=== PATIENT | female | born 1970 | race Asian ===

== ENCOUNTER 2016-10-02 06:01 | Day surgery (SDC) | payer OTHER ==
[2016-09-24 14:27] VITALS: BMI 25.0
[2016-10-02] MEDS ORDERED: GENTAMICIN SO4 80 MG/2 ML VIAL ONE (07:29)
[2016-10-02] MEDS ORDERED: POLYMYXIN B SULFATE 500,000 UNIT VIAL ONE (07:30)
[2016-10-02] MEDS ORDERED: EPINEPHrine 1:1,000 1 MG/1 ML - 30ML VIAL (INJECTION) ONE (07:31)
[2016-10-02] MEDS ORDERED: LIDOCAINE HCL 1%, 10 MG/ML (20ML VIAL) ONE (07:31)
[2016-10-02] MEDS ORDERED: MIDAZOLAM HCL 2 MG/2 ML SINGLE DOSE VIAL ONE (07:50)
[2016-10-02] MEDS ORDERED: SCOPOLAMINE HYDROBROMIDE 1 PATCH PATCH.TD72 ONE (07:50)
[2016-10-02] MEDS ORDERED: GUM MASTIC/STORAX/MSAL/ALCOHOL 1 DRP DROPSBTL MC ONE (07:53)
[2016-10-02] MEDS ORDERED: LIDOCAINE 1%-EPI 1:100,000 30 ML MDV IJ ONE ×2 (07:53→08:28)
[2016-10-02] MEDS ORDERED: PROPOFOL 20 ML ONE ×2 (08:03)
[2016-10-02] MEDS ORDERED: SUCCINYLCHOLINE CHLORIDE 200 MG/10 ML VIAL ONE (08:04)
[2016-10-02] MEDS ORDERED: ROCURONIUM BROMIDE 50 MG/5 ML VIAL ONE ×2 (08:04→09:10)
[2016-10-02] MEDS ORDERED: ceFAZolin SODIUM 1 GM VIAL ONE (08:16)
[2016-10-02] MEDS ORDERED: HYDROmorphone HCL/PF 1 MG/ML VIAL (FOR PYXIS CHARGING ONLY) ONE ×2 (08:18→08:29)
[2016-10-02] MEDS ORDERED: DEXAMETHASONE SOD PHOSPHATE 4 MG/1 ML VIAL ONE ×2 (08:19→09:57)
[2016-10-02] MEDS ORDERED: ONDANSETRON 4 MG/2 ML VIAL ONE ×2 (08:19→09:57)
[2016-10-02] MEDS ORDERED: BUPIVACAINE HCL/PF 2.5 MG/ML - 30 ML VIAL IJ ONE (09:36)
[2016-10-02] MEDS ORDERED: ONDANSETRON 4 MG/2 ML VIAL IVPUSH PRN (10:56)
[2016-10-02] MEDS ORDERED: oxyCODONE HCL 5 MG TABLET PO PRN (10:56)
[2016-10-02] MEDS ORDERED: PROMETHAZINE HCL 25 MG/1 ML VIAL IVPUSH PRN (10:56)
[2016-10-02] MEDS ORDERED: LACTATED RINGERS SOLUTION 1,000 ML IV SCH ×2 (11:00→14:15)
[2016-10-02] MEDS ORDERED: oxyCODONE HCL 5 MG TABLET ONE (12:37)
[2016-10-02] MEDS ORDERED: ONDANSETRON 4 MG/2 ML VIAL IVPB PRN (14:03)
[2016-10-02] MEDS ORDERED: OXYCODONE/APAP 5/325MG COMBO TABLET PO PRN (14:03)
[2016-10-02] MEDS ORDERED: diazePAM 5 MG TABLET PO PRN (14:03)
[2016-10-02] MEDS ORDERED: ACETAMINOPHEN 325 MG TABLET (FP) PO PRN (14:03)
[2016-10-02] MEDS ORDERED: OXYCODONE/APAP 5/325MG COMBO TABLET ONE (16:11)
[2016-10-02] MEDS ORDERED: OXYCODONE/APAP 5/325MG COMBO TABLET PO ONE (16:15)
[2016-10-02] MEDS: CEFAZOLIN 1 GM/D5W 50 ML IVPB SCH ×2 (20:42→20:46)
[2016-10-03] MEDS: OXYCODONE/APAP 5/325MG COMBO TABLET PO PRN ×2 (00:50→05:16)
[2016-10-03] MEDS: CEFAZOLIN 1 GM/D5W 50 ML IVPB SCH (03:03)
[2016-10-03 06:23] VITALS: BP 154/80; PULSE 106; TEMP 98.6
--- NOTE | 2016-10-04 11:06 | PATH ---
Surgical Pathology Report Patient Name: YOSELIN ERIC [facility]. Rec. #: [id number] /Age/Gender: 1970 (Age: 46) / F Account: [id number] Location: [facility] AMBULATORY Taken: 10/02/2016 Received: 10/02/2016 Reported: 10/04/2016 Physicians: Matthew Rodriguez Specimen(s) Received ABDOMINAL WALL Clinical History Breast cancer Abdominoplasty Final Diagnosis ABDOMINAL WALL, ABDOMINOPLASTY: SKIN WITH UNDERLYING ADIPOSE TISSUE, DESCRIBED (GROSS EXAMINATION ONLY). Electronically Signed Dorina Noel M.D. Gross Description Received in formalin, labeled "abdominal wall," is a 798 g, 31.0 x 14.0 x 3.8 cm carver, irregular, unoriented and unremarkable portion of skin with underlying soft tissue. Sectioning reveals yellow, lobulated adipose tissue. No sections are submitted, gross only. /10/02/201610/02/2016
--- NOTE | 2016-10-05 07:31 | OP ---
DATE OF OPERATION: 10/02/2016 SURGEON: Mireya Rodriguez MD TIPPLE REPAIRER SURGEON: HAMLET Torres PREOPERATIVE DIAGNOSES: 1. 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 2. Personal history of breast carcinoma. POSTOPERATIVE DIAGNOSIS: 1. 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 2. Personal history of breast carcinoma. PROCEDURE: 1. Right breast reconstruction utilizing other technique. 2. Left breast reconstruction utilizing other technique. 3. Right nipple areolar reconstruction. 4. Left nipple areolar. 5. Reconstruction of right nipple complex with acellular dermal matrix. 6. Left breast reconstruction with acellular dermal matrix. OPERATIVE INDICATION: The patient is a young woman, 46 years old, who was brought to the operating room for 2nd stage breast reconstruction after bilateral mastectomy. She has an acquired chest wall deformity after mastectomy and requires the above procedures. The risks and benefits surgical versus nonsurgical and alternatives as well as the material complications were described to the patient on multiple occasions. She agreed to the planned procedure. PROCEDURE IN DETAIL: The patient was taken to the operating room, and after induction of general anesthesia in supine position, both arms were extended and padded. Venodyne boots were placed. The entire chest wall was prepped with ChloraPrep solution over itself entire extent as were the flanks and abdomen and lower belly. At this point, after allowing topical anesthesia and hemostasis with injection of 1% local lidocaine and placement of sterile drapes in the usual fashion, attention was turned to the mastectomy scars. The markings, which were made in a standing position preoperatively for outline of the reconstructive procedures were reoutlined, and an incision was made down through the skin and the mastectomy scar into the deep subcutaneous tissue of the chest wall. This was carried on the right breast and then independently on the left breast making reconstruction for breasts with other technique. The lower abdominal skin was marked and incised down through the skin into the subcutaneous tissue down through the deep layers of the subcutaneous tissue and then harvesting subcutaneous tissue for reconstruction. An incision was made in elliptical fashion along the abdominal wall in order to remove the lower skin and fat for reconstructive purposes. This tissue was then transferred to the back table, and the abdominal wall was undermined and advanced and closed upon its in the usual fashion for reconstructive surgery. Copious irrigation and 2 drains were brought out through separate stab wounds inferiorly. The abdominal wall was closed using 2-0 Vicryl suture on the deep tissue, 3-0 PDS in a deep dermal fashion, and 4-0 in a subcuticular fashion. The umbilicus, which was circumscribed and brought back was now brought out into its new anatomic position using the eyeglass technique. The nipple areolar complexes, which had been marked for incision were reconstructed using the double opposing tab nipple areolar reconstruction. Incisions were made down through the skin to the subcutaneous tissue and the flaps were raised on each nipple independently. The flaps were rotated upon themselves and then sutured using 3-0 PDS suture in the deep tissue and 5-0 plain catgut suture on the skin. The donor site was advanced and closed upon itself on each side. The exact same procedure was carried out symmetrically on the right breast and then independently on the left breast. Good symmetry was seen in a sitting position, and the tissue, which had been harvested previously was then transferred to the right and left chest wall onto the superior, medial, central, and inferior portions of the right breast and in the same place on the left breast. Good shape and contour was seen at this point. All wounds for the nipple areolar reconstruction were closed after insertion of a 2 x 4 sheet of AlloDerm, which was divided, rolled into an anchovy, and sutured together, which was placed into the central portion of the nipple areolar complex. All wounds were dressed sterilely with Mastisol, Steri-Strips, and a compressive dressing. The patient was placed into a binder on the abdomen and a surgery bra on the breast. She tolerated the procedure well. She went to the recovery room in satisfactory condition. MIREYA RODRIGUEZ M.D. [id number]
== END 2016-10-03 11:25 | disposition home or self-care (01) ==
LOC: FASU 06:01 → FM/S 17:30 → FASU 10-03 11:25
PROVIDERS: ATTEND Plastic Surgery
PROC: 0HRW07Z Replacement of Right Nipple with Autologous Tissue Substitute, Open Approach (ICD-10-PCS; 2016-10-02)
PROC: 0HUV0KZ Supplement Bilateral Breast with Nonautologous Tissue Substitute, Open Approach (ICD-10-PCS; 2016-10-02)
PROC: 0HRV07Z Replacement of Bilateral Breast with Autologous Tissue Substitute, Open Approach (ICD-10-PCS; principal; 2016-10-02 08:29)
PROC: 0HRX07Z Replacement of Left Nipple with Autologous Tissue Substitute, Open Approach (ICD-10-PCS; 2016-10-02 08:29)
DX: M95.4 Acquired deformity of chest and rib (principal); Z90.13 Acquired absence of bilateral breasts and nipples; Z85.3 Personal history of malignant neoplasm of breast
CPT/HCPCS: 84703; 88300-TC; 94010; 94760